=== PATIENT | male | born 1925 | race Caucasian/White ===

== ENCOUNTER 2016-08-14 08:10 | Day surgery (SDC) | payer MEDICARE, OTHER ==
[~2016-08-14 08:10] MED LIST: AMBIEN5 MG PO; ANDROGEL TD; ASPIRIN81 M1 PO; BABY ASPIRIN81 MG PO; CIPRO250 MG PO; COZAAR50 M1 PO; COZAAR50 MG PO; FAMVIR500 M1 PO; FLEXERIL10 MG PO; FLUOCINONIDE 0.60 GM TP; FOLIC ACID1 M1 PO; GLIPIZIDE5 M2 PO; GLUCOPHAGE500 M3 PO; GLUCOPHAGE500 MG PO; KEFLEX500 MG PO; LEVOXYL100 MC2 PO; LEVOXYL50 MCG PO; LISINOPRIL10 MG PO; LOSARTAN POTASS50 M1 PO; MELOXICAM15 MG PO; MELOXICAM7.5 M1 PO; MELOXICAM7.5 MG PO; NORCO 5/325 TAB1 TAB PO; OMEPRAZOLE40 M1 PO; OMEPRAZOLE40 M2 PO; PREDNISONE10 MG PO; SIMVASTATIN20 MG PO; TIAZAC180 MG PO; TYLENOL325 MG PO; TYLENOL500 MG PO; VITAMIN D31000 UNI3 PO; VITAMIN D31000 UNIT PO; XARELTO15 MG PO; ZOCOR20 M1 PO; ZOCOR20 MG PO
[2016-08-14 09:34] LABS: BASO % 0.4 % (0-2); EOS % 1.7 % (0-7); EOSINOPHIL ABSOLUTE COUNT 0.1 tho/cmm (0.0-0.7); HCT-HEMATOCRIT 36.8 % (36.0-53.5); HGB-HEMOGLOBIN 12.2 gm/dl (13.5-17.0); IMMATURE GRANULOCYTES ABSOLUTE 0.02 tho/cmm (0-0.03); IMMATURE GRANULOCYTES PERCENT 0.3 % (0-0.3); LYMPH % 27.5 % (20-45); LYMPH ABSOLUTE COUNT 2.1 tho/cmm (0.8-4.5); MCHC MEAN CORPUSCULAR HGB CONC 33.2 % (32.0-36.0); MCV (MEAN CELL VOLUME) 93.4 fl (82.0-96.0); MONO % 7.8 % (0-12); MONOCYTE ABSOLUTE COUNT 0.6 tho/cmm (0.0-1.2); NEUTROPHIL ABSOLUTE COUNT 4.7 tho/cmm (1.6-8.0); NEUTROPHIL-AUTOMATED 4.7 tho/cmm (1.6-8.0); NEUTROPHILS % 62.3 % (40-80); PLATELET COUNT 241 tho/cmm (150-450); RED BLOOD COUNT 3.94 mil/cmm (4.40-5.70); RED CELL DISTRIBUTION WIDTH 13.1 % (12.4-16.4); WHITE BLOOD COUNT 7.5 tho/cmm (4.0-10.0)
[2016-08-14 09:44] LABS: ANION GAP 13 mmol/L (0-20); BLOOD UREA NITROGEN 26 mg/dl (6-24); CALCIUM 8.8 mg/dl (8.5-10.5); CARBON DIOXIDE-VENOUS 25 mmol/L (22-32); CHLORIDE 109 mmol/l (96-110); CREATININE 0.92 mg/dl (0.60-1.30); GLUCOSE 124 mg/dL (70-110); POTASSIUM 4.1 mmol/L (3.7-5.1); SODIUM 143 mmol/L (135-145); eGFR VALUE FOR BLACK 85 mL/Min
[2016-11-27] MEDS ORDERED: MOBIC7.5 M2 PO (08:57)
== END 2016-08-14 11:50 ==
LOC: SRG 08:10 → SHSB 08:23 → ORE 10:22
PROVIDERS: Anesthesiology
PROC: 0HB1XZZ Excision of Face Skin, External Approach (ICD-10-PCS; principal; 2016-08-14)
DX: L57.8 Other skin changes due to chronic exposure to nonionizing radiation (principal); I10 Essential (primary) hypertension; M15.9 Polyosteoarthritis, unspecified; M06.9 Rheumatoid arthritis, unspecified; E11.9 Type 2 diabetes mellitus without complications; K21.9 Gastro-esophageal reflux disease without esophagitis; Z79.82 Long term (current) use of aspirin; Z79.84 Long term (current) use of oral hypoglycemic drugs; Z79.899 Other long term (current) drug therapy; Z87.891 Personal history of nicotine dependence; Z85.46 Personal history of malignant neoplasm of prostate; Z87.440 Personal history of urinary (tract) infections; Z90.79 Acquired absence of other genital organ(s); Z96.653 Presence of artificial knee joint, bilateral; Z98.890 Other specified postprocedural states
CPT/HCPCS: J0690